=== PATIENT | male | born 1965 | race Caucasian/White ===

== ENCOUNTER 2016-09-04 15:45 | Inpatient (IN) | payer MEDICAID ==
--- NOTE | ~2016-09-04 | HP ---
Unit #: [id number] #: [id number] Patient: RACHEAL RUIZ [id number] [place] [address] [id number] I MR#: [id number] NAME: RACHEAL RUIZ ROOM: [facility] Age: 51 Sex: M Admission Date: 09/04/2016 : 1965 Attending Physician: Tod Rizzo M.D. Admitting Physician: Tod Rizzo M.D. Primary Care Physician: Generic Doctor Not In System HISTORY AND PHYSICAL HISTORY OF PRESENT ILLNESS Racheal is a 51 year old admitted to [facility] because of his polysubstance abuse which includes alcohol and opioids. PAST MEDICAL HISTORY 1. History of alcohol abuse. 2. History of illicit substance abuse to include opioids. 3. Seizure disorder. 4. High blood pressure. PAST SURGICAL HISTORY Low back. ALLERGIES No known drug allergies. SOCIAL HISTORY Smokes 1 pack per day. Drinks a case of beer on a daily basis. Admits to abusing opioids. FAMILY HISTORY Medically noncontributory. REVIEW OF SYSTEMS CONSTITUTIONAL: No fever or chills. HEENT: Denies any sore throat, ear pain or runny nose. CARDIOVASCULAR: Denies chest pain, irregular heart rhythm or palpitations. CHEST: Denies shortness of breath or cough. No hemoptysis. GASTROINTESTINAL: Denies nausea, vomiting, diarrhea or chronic constipation. ENDOCRINE: Denies history of increased thirst or urination. No recent significant weight loss or gain. GENITOURINARY: Denies dysuria, frequency, or hematuria. SKIN: Denies any rashes. HEMATOLOGIC: Denies history of increased bleeding or bruising. MUSCULOSKELETAL: Denies any hot, swollen joints. No generalized muscle pain. NEUROLOGIC: Denies problems with vision or speech. No frequent, severe headaches. No numbness, tingling or weakness in any extremities. Denies loss of bladder or bowel control. CURRENT MEDICATIONS 1. Detox protocol. Unit #: [id number] #: [id number] Patient: RACHEAL RUIZ 2. Protonix 40 mg daily. 3. Ibuprofen 800 mg t.i.d. p.r.n. 4. Keppra 750 mg b.i.d. 5. Neurontin 600 mg t.i.d. 6. Claritin 10 mg daily. 7. Lasix 20 mg daily. 8. KCL 20 mEq daily. 9. Toprol XL 50 mg daily. 10. Cymbalta 30 mg daily. PHYSICAL EXAMINATION GENERAL: Alert, well-nourished, in no apparent distress. VITAL SIGNS: Blood pressure 144/100, heart rate 62, respirations 16, temperature 98.6. WEIGHT: 180. HEIGHT: 5 feet 9 inches. SKIN: Warm and dry without rash or lesion. HEENT: Normocephalic. TMs not viewed. Oral and nasal passages clear. Conjunctivae clear. PERRLA. EOMs intact. NECK: Supple without lymphadenopathy or thyromegaly. HEART: Regular rate and rhythm without murmur. LUNGS: Clear. ABDOMEN: Soft, nontender. : Not done. EXTREMITIES: No evidence of cyanosis, clubbing or edema. Moves all without focal deficit. NEUROLOGICAL: Grossly within normal limits. Cranial Nerves: II: Visual miranda are intact. III, IV AND : Extraocular movements are intact. Pupils are equal, round and reactive to light. V: Facial sensation is grossly normal. VII: Facial movements and expression are normal. VIII: Auditory acuity grossly intact. IX, X: Uvula is midline. Phonation is normal. XI: Patient shrugs shoulders and turns head normally. XII: Tongue protrudes in the midline. Sensory and Motor Function: Sensory and motor sensation is grossly normal. Motor: moves all extremities well. Coordination: Gait is normal. Deep Tendon Reflexes: Intact. IMPRESSION Psychiatric admission. RECOMMENDATIONS PSYCHIATRIC: Per psychiatrist. MEDICAL: See no contraindications to participate in facility's activities. MEDICAL PROGNOSIS Good. MEDICAL CONDITION Stable. Dictated by... Doreen Vaca P.A.-C. for Swati Zuñiga M.D. Unit #: [id number] #: [id number] Patient: RACHEAL RUIZ FAMILIA/héctor TD: 09/05/2016 22:30 JOB #: [id number] HISTORY AND PHYSICAL Page 1 of 1 X Doreen Vaca HISTORY AND PHYSICAL
--- NOTE | ~2016-09-04 | PN ---
Unit #: [id number] #: [id number] Patient: RACHEAL RUIZ [id number] [facility] [address] [place] [address] [id number] I MR#: [id number] NAME: RACHEAL RUIZ ROOM: [facility] Age: 51 Sex: M Admission Date: 09/04/2016 : 1965 Attending Physician: Tod Rizzo M.D. Admitting Physician: Tod Rizzo M.D. Primary Care Physician: Generic Doctor Not In System [facility] NOTES SUBJECTIVE UPDATE This is a 51-year-old male who is here for ongoing issues with significant alcohol dependency and related withdrawal. The patient continues to report feeling very poorly, aches, pains, tremors, diaphoretic, depressed, poor energy, headache. Blood pressure was somewhat improved today compared to yesterday, but still in fluctuation. The patient also had additional complaints of mild shortness of breath and hip pain. The patient has been fairly isolative to self per staff. No SI today. MENTAL STATUS EXAMINATION General Appearance: This is a limitedly groomed white male who appears older than stated age. Improving cooperation but still limited. Improving eye contact but still limited. Speech was clear, coherent, but brief. Mood was depressed but with blunted affect. Thought process and content were grossly organized and linear. No overt evidence of psychosis. No SI or HI noted today. The patient's memory was grossly intact. Associations were normal. Cognitive functioning was at baseline. He is alert and oriented x4. Insight and judgment limited but improving. RECOMMENDATIONS We will continue the patient's admission for ongoing issues with symptoms of detox as noted above. We will have a med consult and see the patient for the new related symptoms noted above. The patient encouraged for ambulation and interaction as much as possible to limit his isolation in his room. Dictated by... Lupe Loza/lizandro TD: 09/08/2016 06:48 JOB #: [id number] Unit #: [id number] #: [id number] Patient: RACHEAL RUIZ [facility] NOTES Page 1 of 1 X Tod Rizzo MD PROGRESS NOTE
--- NOTE | ~2016-09-04 | CO ---
Unit #: [id number] #: [id number] Patient: RACHEAL RUIZ [id number] [place] [address] [id number] I MR#: [id number] NAME: RACHEAL RUIZ ROOM: [facility] Age: 51 Sex: M Admission Date: 09/04/2016 : 1965 Attending Physician: Tod Rizzo M.D. Consultation Date: 09/07/2016 CONSULTATION REPORT SUBJECTIVE Racheal is a 51-year-old who has complained of some back and hip pain after sleeping on our hospital beds. He does report some intermittent problems with degenerative disk disease. He denies any injury. We have been asked to assess and treat. OBJECTIVE GENERAL: Alert, well nourished, in no apparent distress. VITAL SIGNS: Blood pressure 120/70, heart rate 80, respirations 16, temperature 98.6. BACK: Full range of motion. Minimal tenderness along the LS spine. EXTREMITIES: Moves all without focal deficit. DTRs 2+. Muscle strength 5/5 bilaterally. Note, examination of his bed shows a very soft foam mattress providing little to no support to the lower back. In fact at the area that corresponds with his lower back, there is a large divot in the mattress. ASSESSMENT Low back strain. PLAN He is already on an anti-inflammatory agent. We will add Flexeril 10 mg p.o. q.h.s. Dictated by... Doreen Vaca P.A.-C. for Lupe Owens/sushil TD: 09/10/2016 01:54 JOB #: [id number] Unit #: [id number] #: [id number] Patient: RACHEAL RUIZ CONSULTATION REPORT Page 1 of 1 X Doreen Vaca CONSULTATION REPORT
--- NOTE | ~2016-09-04 | PA ---
Unit #: [id number] #: [id number] Patient: RACHEAL RUIZ [id number] [place] [address] [id number] I MR#: [id number] NAME: RACHEAL RUIZ ROOM: P179 Age: 51 Sex: M Admission Date: 09/04/2016 : 1965 Date of Assessment: Attending Physician: Tod Rizzo M.D. Admitting Physician: Tod Rizzo M.D. Primary Care Physician: Generic Doctor Not In System PSYCHIATRIC ASSESSMENT LOCATION [facility], room #179, bed #1. INFORMANTS The patient and chart, chart seems reliable. CHIEF COMPLAINT "I can't stop drinking." HISTORY OF PRESENT ILLNESS This is a 51-year-old, white male with a longstanding history of alcohol dependency with significant withdrawal issues admitted at this time for primary issues with need for alcohol detox as well as having suicidal ideation because the depression that is causing him. The patient unfortunately during interview process today was very sedate and was not able to cooperate much because of his fatigue, but was able to confirm. He was fully oriented and he is here for alcohol treatment. He drinks 8 to 9 beers a day plus up to half of a 5th of liquor in addition. He has been doing that for months to years, it is unclear exactly. The patient has been through treatment in the past at [facility], but apparently they since changed their insurance policies and he "can't get in there." The patient did admit to still having some vague SI at this time. He said that it is better compared to when he came in yesterday. Unfortunately, most of the rest of information had to be obtained from chart as the patient was not very cooperative. PAST PSYCHIATRIC HISTORY Unclear in terms of previous psychiatric treatment inpatient or out. The patient reportedly does have history of depression and is currently on Cymbalta, however, it is unclear who has been providing this to him, unclear about the history of actual suicide attempts or gestures. FAMILY HISTORY Significant for cancer in his father who 3 years ago. SOCIAL HISTORY The patient lives alone. Unclear if , has children, educational background at this time. MEDICAL HISTORY Significant for chronic pain issues, seizure disorder, hypertension. MEDICATION HISTORY Unit #: [id number] #: [id number] Patient: RACHEAL RUIZ Protonix 40 mg daily, ibuprofen 800 mg t.i.d. as needed, amitriptyline 100 mg at bedtime, Keppra 750 mg b.i.d., Neurontin 600 mg t.i.d., Claritin 10 mg daily, furosemide 20 mg daily, potassium chloride 20 mEq daily, Toprol-XL 50 mg daily, Cymbalta 30 mg daily. ALLERGIES Include no known drug allergies. SUBSTANCE ABUSE HISTORY As noted above. He does have a history of alcohol withdrawal seizures as well as seizure disorder, unclear last treatment around abuse, unclear about other illicit substances of abuse. MENTAL STATUS EXAM General appearance; this is a limitedly groomed white male, appeared older than stated age. Today limited cooperation and response during the interview process. Speech was brief, but clear. Mood was dysphoric, sedated with a blunted affect. Thought process and content were grossly organized. The whole evaluation was not possible. Positive for SI, but improved, no plan. No HI. No psychosis noted. Memory limited evaluation, but generally intact. Associations seemed appropriate. He was alert and oriented x4. Cognitive function seems to be at baseline. Insight and judgment are limited. ASSETS AND LIABILITIES Assets include previous exposure to treatment. Liabilities include limited support, unclear employment situation and ongoing substance abuse. ADMITTING DIAGNOSES 1. Alcohol dependency with withdrawal. 2. Major depressive disorder, recurrent, severe, without psychotic features. 3. Hypertension. 4. Chronic pain. 5. Seizure disorder. 6. Gastroesophageal reflux disease. PSYCHIATRIC PLAN To continue the patient's admission for safety and stabilization for ongoing issues with alcohol detox need, the patient is currently on [facility] protocol and receiving it appropriately. Already starting to have symptoms of extreme fatigue, exhaustion, mood imbalance, mild tremor in his hands, mild diaphoresis noted upon evaluation. Further symptoms to be monitored accordingly per protocol. We will continue the patient on his current home medications and allow a chance to clear from the effects of detox before additional changes will be made. We will hopefully be able to discuss the patient's possible residential treatment if he is applicable for. Treatment goal will be resolution of symptoms in a safe controlled environment and monitored accordingly. Therefore with discharge planning again hopefully to include residential treatment if not community resources. ESTIMATED LENGTH OF STAY Approximately 5 days. Dictated by... Unit #: [id number] #: [id number] Patient: RACHEAL RUIZ M.D. SB/sushil TD: 09/06/2016 01:52 JOB #: [id number] PSYCHIATRIC ASSESSMENT Page 1 of 1 X Tod Rizzo MD X PSYCHIATRIC ASSESSMENT
--- NOTE | ~2016-09-04 | PN ---
Unit #: [id number] #: [id number] Patient: RACHEAL RUIZ [id number] [place] [address] [id number] I MR#: [id number] NAME: RACHEAL RUIZ ROOM: P179 Age: 51 Sex: M Admission Date: 09/04/2016 : 1965 Attending Physician: Tod Rizzo M.D. Admitting Physician: Tod Rizzo M.D. Primary Care Physician: Generic Doctor Not In System [facility] PROGRESS NOTES DATE OF SERVICE: 09/06/2016 LOCATION [facility], room #179, bed #1. SUBJECTIVE This is a 51-year-old male, here with ongoing issues of severe alcohol withdrawal, who reports feeling somewhat better today, still very fatigued, aches and pains, tremor in all 4 extremities, limited GI tolerance for food, some diarrhea. Vital signs are extremely elevated with a blood pressure of 144/100. The patient is reporting feeling somewhat better today compared to how he did yesterday and animated, but still extremely limited support from where he should be. MENTAL STATUS EXAMINATION General appearance; this is a limitedly groomed white male, appears older than stated age, improved cooperation, but still limited. Speech was clear, but brief. Mood was dysphoric with a blunted affect. Thought process and content were grossly organized and linear. No overt evidence of psychosis. No overt SI or HI at this time. The patient's memory was grossly intact. Associations were normal. Cognitive function was at baseline. He was alert and oriented x4. Insight and judgment are limited, but improving. RECOMMENDATIONS We will continue the patient's admission for ongoing issues with detox for symptoms as noted above. The patient is still highly at risk and needs further stabilization on the detox protocol. We will continue to monitor daily and make disposition care as progress improves. Dictated by... Tod Rizzo M.D. SB/modl TD: 09/06/2016 20:50 JOB #: [id number] Unit #: [id number] #: [id number] Patient: RACHEAL RUIZ PROGRESS NOTES Page 1 of 1 X Tod Rizzo MD NOTE
--- NOTE | ~2016-09-04 | PN ---
Unit #: [id number] #: [id number] Patient: RACHEAL RUIZ [id number] [facility] [address] [place] [address] [id number] I MR#: [id number] NAME: RACHEAL RUIZ ROOM: [facility] Age: 51 Sex: M Admission Date: 09/04/2016 : 1965 Attending Physician: Tod Rizzo M.D. Admitting Physician: Tod Rizzo M.D. Primary Care Physician: Generic Doctor Not In System [facility] PROGRESS NOTES DATE 09/08/2016 DISCUSSION SUBJECTIVE UPDATE This is a 51-year-old white male, who is here with ongoing issues with alcohol, detox issues. The patient reports still feeling very poor in terms of energy, aches and pains, still complaining of his hip pains and shortness of breath issue from yesterday has improved, still having some sleep issues and upset stomach but he says that it is somewhat better today. Tremors were improved and blood pressure seems to be stabilizing. The patient is still reporting intolerance of sound, as well as being isolative to his own room but compliant with care per staff. MENTAL STATUS EXAMINATION General appearance is a poorly groomed white male who appears older than stated age, fairly cooperative, responsive to interview process, with moderate eye contact. Speech was clear and coherent with limited paucity. Mood was depressed, dysphoric, with a constricted affect. Thought process and content were grossly organized, linear, no overt evidence of psychosis. He denies any SI or HI. The patient's memory was grossly intact. Associations were normal. Alert and oriented x4. Cognitive functioning was at baseline. Insight and judgment is limited. RECOMMENDATIONS 1. Will continue the patient's admission for ongoing detox issues, symptoms seem to be improving, residuals as noted above, likely work towards disposition soon if the patient's progress is maintained and encourage ambulation, socialization, and interaction on the unit with groups and peers. 2. The patient seen by medicine consult yesterday for pain issues and provided with muscle relaxant. 3. We will continue to monitor the patient's progress accordingly. Dictated by... Tod Rizzo M.D. SB/tapan Unit #: [id number] #: [id number] Patient: RACHEAL RUIZ TD: 09/10/2016 06:36 JOB #: [id number] [facility] PROGRESS NOTES Page 1 of 1 X Tod Rizzo MD PROGRESS NOTE
--- NOTE | ~2016-09-04 | DS ---
Unit #: [id number] #: [id number] Patient: RACHEAL RUIZ [id number] [place] [address] [id number] I MR#: [id number] NAME: RACHEAL RUIZ ROOM: [facility] Age: 51 Sex: M Admission Date: 09/04/2016 : 1965 Discharge Date: 09/08/2016 Attending Physician: Tod Rizzo M.D. Primary Care Physician: Generic Doctor Not In System DISCHARGE SUMMARY REASON FOR ADMISSION Alcohol dependency and major depressive disorder. DIAGNOSTIC STUDIES PERTINENT LABORATORY DATA: Included CMP that was well within normal parameters with the exception of BUN of 7, AST of 73 and ALT of 61. RPR was nonreactive. CBC was within an exceptional parameters with the exception of platelet count of 93. UA was negative except for a one plus urobilinogen with a tox screen positive for amphetamines and TCA. HOSPITAL COURSE The patient was admitted for safety and stabilization for ongoing issues with alcohol dependency and withdrawal as well as depressive disorder claiming suicidal ideation in the emergency room. The patient as placed on alcohol detox protocols and tolerated it well with symptoms notably including sweats, tremors, sleep disturbance, poor energy, headache, anxiety and of course of depression with (1) . It should of note that the patient's suicidal ideation resolved almost immediately upon admission and his home medications were continued as per the chart. The patient was seen by medicine consult for complaints of shortness of air and pain with his hip and was placed on a low dose of muscle relaxants while here. Over the course of hospitalization the patient showed improvement. He was still isolative to his room almost the entire time but was pleasant and cooperative with care. The patient had been seen today of discharge earlier and was still having some mild symptoms of discomfort and seen much more focused on his pain issues and his detox and after I left later decided he wanted to leave although was felt the patient would have benefited from continued care in the hospital. It was felt it was okay for him to be discharged since he was no longer suicidal was not having any acute mood issues and there seemed to be a medication concern at hand. Overall, the patient was felt appropriate to be allowed to leave. DISCHARGE DIAGNOSES 1. Alcohol dependency with withdrawal. 2. Major depressive disorder recurrent severe without psychotic features. 3. Hypertension. 4. Seizure disorder. 5. Chronic pain. 6. GERD. DISCHARGE [facility] Unit #: [id number] #: [id number] Patient: RACHEAL RUIZ Was of community resources. DISCHARGE MEDICATIONS Included his home medications which were: 1. Protonix 40 mg daily for GERD. 2. Over the counter ibuprofen as needed for break through pain. 3. Amitriptyline 100 mg at bedtime for pain and sleep. 4. Keppra 750 mg twice a day for seizure prophylaxis. 5. Neurontin 600 mg three times a day for pain. 6. Claritin 10 mg daily for seasonal allergies. 7. Furosemide 20 mg daily for hypertension. 8. Potassium chloride 20 mEq daily for Lasix prophylaxis. 9. Toprol XL 50 mg daily for hypertension. 10. Cymbalta 30 mg daily for depression. CONDITION AT DISCHARGE Improving PROGNOSIS Poor given the patient's reluctant to complete programming. DIET AND ACTIVITY Diet is heart healthy with activities as tolerated. Dictated by... Tod Rizzo M.D. JIMY/carson TD: 09/10/2016 02:42 JOB #: [id number] DISCHARGE SUMMARY Page 1 of 1 X Tod Rizzo MD X DISCHARGE SUMMARY
[2016-09-05 09:48] LABS: URINE APPEARANCE CLEAR; URINE BILIRUBIN NEG (NEG); URINE BLOOD NEG (NEG); URINE COLOR YELLOW; URINE GLUCOSE NEG (NEG); URINE KETONE TRACE (NEG); URINE LEUKOCYTE ESTERASE NEG (NEG); URINE NITRATE NEG (NEG); URINE PH 5.5 (5-8); URINE PROTEIN NEG (NEG); URINE SPECIFIC GRAVITY 1.012 (1.003-1.035)
[2016-09-05 10:06] LABS: BASOPHIL# 0.1 X10e3 (0-0.3); BASOPHIL% 1.3 % (0-2.5); EOSINOPHIL# 0.2 X10e3 (0-0.7); EOSINOPHIL% 3.2 % (0.0-7.0); HEMATOCRIT 42.2 % (38.0-50.0); LYMPHOCYTE# 1.5 X10e3 (1.0-3.5); LYMPHOCYTE% 30.8 % (17.0-45.0); MEAN CELL VOLUME 95.7 FL (83-96); MEAN CORPUSCULAR HEMOGLOBIN 31.8 PG (28-34); MEAN CORPUSCULAR HGB CONC 33.2 g/dL (30-36); MEAN PLATELET VOLUME 8.6 FL (6.5-11.5); MONOCYTE# 0.3 X10e3 (0-1.0); MONOCYTE% 5.7 % (3.0-12.0); NEUTROPHIL# 2.8 X10e3 (1.5-7.1); WHITE BLOOD COUNT 4.7 X10e3 (4.0-10.5)
[2016-09-05 10:16] LABS: ALBUMIN SERUM 3.5 g/dL (3.5-5.0); BILIRUBIN,TOTAL 1.3 mg/dL (0.2-2.0); BUN/CREATININE RATIO 8.75; CALCIUM SERUM 9.1 mg/dL (8.4-10.2); CREATININE SERUM 0.8 mg/dL (0.6-1.4); GLOM FILT RATE Estimated 102.7 mL/min (>60); POTASSIUM 4.4 mmol/L (3.5-5.1); PROTEIN TOTAL SERUM 6.2 g/dL (6.0-8.3)
[2016-09-05 10:50] LABS: AMPHETAMINE POS (NEG); BARBITURATES NEG (NEG); BENZODIAZEPINES NEG (NEG); COCAINE NEG (NEG); MARIJUANA NEG (NEG); OPIATES NEG (NEG); TRICYCLIC ANTIDEPRESSANTS POS (NEG); U METHADONE NEG (NEG)
[2016-09-05 11:05] LABS: DIFF IND YES; PLATELET COUNT 93 X10e3 (140-420)
[2016-09-05 11:09] LABS: PLATELET ESTIMATE DECREASED (NORMAL)
[2016-09-05 11:10] LABS: RBC NORMAL YES
== END 2016-09-08 16:00 | disposition home or self-care (01) | DRG 897 ==
LOC: P1E 18:53
PROVIDERS: Psychiatry & Neurology Psychiatry
PROC: HZ2ZZZZ Detoxification Services for Substance Abuse Treatment (ICD-10-PCS; principal; 2016-09-04)
DX: F10.239 Alcohol dependence with withdrawal, unspecified (principal); F33.2 Major depressive disorder, recurrent severe without psychotic features; G40.909 Epilepsy, unspecified, not intractable, without status epilepticus; I10 Essential (primary) hypertension; K21.9 Gastro-esophageal reflux disease without esophagitis; F17.210 Nicotine dependence, cigarettes, uncomplicated; S39.012A Strain of muscle, fascia and tendon of lower back, initial encounter
CPT/HCPCS: 80053; 80307; 81003; 85025; 86592